=== PATIENT | female | born 1995 | race Caucasian/White ===

== ENCOUNTER 2021-11-23 13:10 | Emergency (ER) | payer MEDICAID, SELFPAY | END 2021-11-23 14:49 | disposition left against medical advice (07) | PROVIDERS: Emergency Provider Emergency Medicine | DX: R11.10 Vomiting, unspecified (principal) ==

== ENCOUNTER 2021-12-17 14:43 | Emergency (ER) | payer OTHER, MEDICAID, SELFPAY ==
--- NOTE | ~2021-12-17 | XR_ITS ---
EXAMINATION: XR CHEST CLINICAL INFORMATION: Injury COMPARISON: None TECHNIQUE: Frontal view of the chest was obtained. FINDINGS: No significant abnormality is noted involving the heart, lungs, mediastinum, bony thorax or soft tissues. XR/XR chest 1V IMPRESSION: Unremarkable examination.
[2021-12-17 15:24] VITALS: BP 104/68; PULSE 90; RESP 18; TEMP 36.1; O2SAT 98; BMI 40.3
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
== END 2021-12-17 18:03 | disposition home or self-care (01) ==
PROVIDERS: Emergency Provider Internal Medicine
DX: R07.89 Other chest pain (principal)
CPT/HCPCS: 71045; 99283

== ENCOUNTER 2022-03-23 19:03 | Emergency (ER) | payer MEDICAID, SELFPAY ==
[2022-03-23 20:40] VITALS: BP 122/75; PULSE 77; RESP 14; TEMP 36.7; O2SAT 98; BMI 39.4
[2022-03-23 23:44] VITALS: BP 116/68; PULSE 65; RESP 18; TEMP 36.8; O2SAT 100
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
[2022-03-24 03:51] VITALS: PULSE 68; RESP 16; O2SAT 100
== END 2022-03-24 03:57 | disposition home or self-care (01) ==
PROVIDERS: Emergency Provider Internal Medicine
DX: S61.412A Laceration without foreign body of left hand, initial encounter (principal); X99.0XXA Assault by sharp glass, initial encounter; Y93.9 Activity, unspecified; Y92.9 Unspecified place or not applicable; Y99.9 Unspecified external cause status; F17.210 Nicotine dependence, cigarettes, uncomplicated; Z71.6 Tobacco abuse counseling
CPT/HCPCS: 99283; 99284